=== PATIENT | female | born 1965 | race Caucasian/White ===

== ENCOUNTER 2016-04-26 04:56 | Day surgery (SDC) | payer BC, OTHER ==
--- NOTE | 2016-04-25 09:24 | HP ---
Past Medical History - Admission Chief Complaint: Irregular vaginal bleeding. History of Present Illness: 50 year who has been having irregular bleeding consisting of bleeding every 2 week for the past 3months. Pap smear 04/19/16 was negative for malignancy. Pelvic ultrasound performed revealed a thickened endometrium of 17 mm with a retroverted uterus measuring 7 by 6 by 5 cm. Thyroid, FSH and LH levels normal February 2016 History Source: Patient Limitations to Obtaining History: No Limitations - Past Medical History ...: 4 ...Para: 3 ...Spon : 1 - Past Surgical History Hx Myomectomy: No Hx Transabdominal Cerclage: No - Smoking History Smoking history: Never smoked - Alcohol/Substance Use Hx Alcohol Use: Yes (Social) History of Substance Use: reports: None - Social History Usual Living Arrangement: Yes: With Spouse History of Recent Travel: Yes ([place] with son for college visit.) Family Disease History - Family Disease History Family Disease History: Diabetes: Father, Other: Mother (Osteoporosis) Other Family History: thymic tumor Review of Systems - Review of Systems Constitutional: reports: No Symptoms HENT: reports: No Symptoms Cardiovascular: reports: No Symptoms Respiratory: reports: No Symptoms Gastrointestinal: reports: No Symptoms Genitourinary: reports: No Symptoms Breasts: reports: No Symptoms Reported Musculoskeletal: reports: No Symptoms Neurological: reports: No Symptoms Psychiatric: reports: No Symptoms Physical Exam-SYSTEMS ANALYSIS MANAGER Constitutional: Yes: Well Nourished, No Distress, Calm Neck: Yes: WNL, Supple, Trachea Midline Cardiovascular: Yes: WNL, Regular Rate and Rhythm Respiratory: Yes: WNL, Regular, CTA Bilaterally Gastrointestinal: Yes: WNL, Soft ...Rectal Exam: Yes: WNL Pelvis: Yes: WNL External Genitalia: Yes: Normal Internal Exam Deferred: Yes Vaginal Exam: Yes: Normal Cervix: Yes: Normal Uterus: Yes: Normal, Freely Moveable, Retroverted Adnexa: Normal: Bilateral Breast(s): Yes: WNL Extremities: Yes: WNL Edema: No Psychiatric: Yes: WNL Imaging - Results Ultrasound: Report Reviewed Assessment/Plan Irregular menstrual bleeding Thcikened endometrium Plan: D and C with Hysteroscopy on April 26, 2016
[2016-04-25 17:01] VITALS: BMI 20.5
[2016-04-26] MEDS ORDERED: ePHEDrine SULFATE 50 MG/1 ML AMPULE ONE (07:35)
[2016-04-26] MEDS ORDERED: PROPOFOL 20 ML ONE ×3 (07:35)
[2016-04-26] MEDS ORDERED: MIDAZOLAM HCL 2 MG/2 ML SINGLE DOSE VIAL ONE (07:35)
[2016-04-26] MEDS ORDERED: SUCCINYLCHOLINE CHLORIDE 200 MG/10 ML VIAL ONE (07:35)
[2016-04-26] MEDS ORDERED: IBUPROFEN 400 MG TABLET (FP) PO PRN (08:29)
[2016-04-26] MEDS ORDERED: ACETAMINOPHEN 325 MG TABLET (FP) PO PRN (08:29)
--- NOTE | 2016-04-26 08:34 | OP ---
Operative Note - Note: Operative Date: 04/26/16 Pre-Operative Diagnosis: Irregular Bleeding, Thickened endometrium Operation: D and C Hysteroscopy Surgeon: Minesh Amin Anesthesiologist/VASC TECH: Josesito Marques Anesthesia: General Specimens Removed: Endometrial curettings Operative Report Dictated: Yes
[2016-04-26] MEDS ORDERED: ACETAMINOPHEN 1000 MG/100 ML VIAL (NON FORMULARY) IVPB ONE (09:17)
[2016-04-26] MEDS ORDERED: ONDANSETRON 4 MG/2 ML VIAL IVPUSH PRN (09:17)
[2016-04-26] MEDS ORDERED: oxyCODONE HCL 5 MG TABLET PO PRN (09:17)
[2016-04-26] MEDS ORDERED: ACETAMINOPHEN INJECTION 100 ML IVPB ONE (09:20)
[2016-04-26] MEDS ORDERED: LACTATED RINGERS SOLUTION 1,000 ML IV SCH (09:30)
[2016-04-26 09:32] VITALS: TEMP 97.8
[2016-04-26 11:06] VITALS: BP 123/72; PULSE 72
--- NOTE | 2016-04-26 20:45 | OP ---
DATE OF OPERATION: 04/26/2016 PREOPERATIVE DIAGNOSIS: Irregular bleeding, thickened endometrium. POSTOPERATIVE DIAGNOSIS: Irregular bleeding, thickened endometrium. OPERATION: Dilation and curettage, hysteroscopy. SURGEON: Minesh West MD ANESTHESIA: General, Dr. Marques SPECIMEN: Endometrial curetting. FLUID: 700 mL. BLOOD LOSS: 10 mL. PROCEDURE: Under general anesthesia, patient placed in the dorsal lithotomy position, prepped and draped in the usual sterile manner. Pelvic examination performed, revealing a uterus that was retroverted, normal size and shape, adnexa negative bilaterally. With a weighted speculum, the anterior lip of the cervix grasped with sharp-toothed tenaculum. The endocervical canal was dilated to allow 5-mm scope to be inserted. A uterine sound measured the uterine cavity to 7 cm. With saline distention of uterine cavity, the uterine cavity was visualized. Lining appeared to be symmetrical and no polyp or fibroid. The lining appeared to be thickened. With these findings noted the scope was then removed and the cervix was curetted. The endocervical canal was dilated. Curettage was performed, in which tissue was obtained. Patient tolerated procedure well, brought to recovery room in satisfactory condition. MINESH WEST M.D. BRIANA/[id number]
--- NOTE | 2016-04-27 13:27 | PATH ---
Surgical Pathology Report Patient Name: YARED MONREAL [facility]. Rec. #: [id number] /Age/Gender: 1965 (Age: 50) / F Account: [id number] Location: [facility] SURGICAL Taken: 04/26/2016 Received: 04/26/2016 Reported: 04/27/2016 Physicians: Minesh Amin M.D. Specimen(s) Received ENDOMETRIAL CURETTINGS Clinical History Irregular menstruation 50 year old bleeding q 2 weeks for 3 months; 1.7 cm endometrium Final Diagnosis ENDOMETRIUM, CURETTAGE: POLYPOID FRAGMENTS OF DISORDERED PROLIFERATIVE ENDOMETRIUM WITH STROMAL BREAKDOWN CHANGES AND FOCAL AREA SUGGESTIVE OF ENDOMETRIAL POLYP. FRAGMENTS OF BENIGN SMOOTH MUSCLE. FRAGMENTS OF BENIGN ENDOCERVICAL TISSUE. Electronically Signed Charanjit Sanchez M.D. Gross Description Received in formalin, labeled "endometrial curettage" is a 4.7 x 4.0 x 0.3 cm aggregate of hernandez-red soft tissue fragments. The formalin is filtered and the specimen is entirely submitted in 4 cassettes. /04/26/2016 saudi04/26/2016
== END 2016-04-26 11:08 | disposition home or self-care (01) ==
LOC: JASU-SURG 04:56
PROVIDERS: ATTEND Obstetrics & Gynecology
PROC: 0UDB8ZX Extraction of Endometrium, Via Natural or Artificial Opening Endoscopic, Diagnostic (ICD-10-PCS; principal; 2016-04-26 08:00)
DX: N93.8 Other specified abnormal uterine and vaginal bleeding (principal); R93.8 Abnormal findings on diagnostic imaging of other specified body structures
CPT/HCPCS: 88305-TC; 94760